=== PATIENT | female | born 1990 | race Caucasian/White ===

== ENCOUNTER 2025-01-15 13:58 | Emergency (ER) | payer BC, SELFPAY ==
[2025-01-15 14:00] VITALS: BP 145/83
--- NOTE | 2025-01-15 15:01 | ED.GENMED ---
History of Present Illness
General
Chief Complaint: Dental Problem
Source: patient
Exam Limitations: none
Time Seen by Provider: 01/15/25 14:44
Nursing documentation reviewed up to this point in time: agreed with
History of Present Illness
History of Present Illness:
Patient to ED with complaint of pain to left lower 2nd molar. States tooth broke awhile back, became painful last PM. Tried to see dentist today at [facility] but dentist does not accept her insurance. Brought self to ED for eval. Denies fever/chills.
No facial swelling
Past History
Past History
ED Past Medical History: Psychiatric (Bipolar disorder, borderline personaliity, anxiety disorder) and Other (Spontaneous vaginal delivery 08/08/2012. Cholelithiasis. Colitis. Ovarian cysts)
ED Past Surgical History: Cholecystectomy, Gynecological, Tonsilectomy and Other (D and C. after a spontaneous miscarriage)
Social History
Tobacco: Smoker
Alcohol: None
Drug: None
Personal:
Living: with family
Employment: Not employed
Family History
Family History: Negative Sudden
Review of Systems
Review of Systems
Allergies reviewed?: Yes
All Other Systems: ROS reviewed and negative except as documented in HPI and ROS
Constitutional: Reports no symptoms
EENT: Reports other (pain to broken left lower 2nd molar)
Respiratory: Reports no symptoms
Cardiac: Reports no symptoms
ABD/GI: Reports no symptoms
: Reports no symptoms
Musculoskeletal: Reports no symptoms
Skin: Reports no symptoms
Neurological: Reports no symptoms
Psychiatric: Reports no symptoms
Phy Exam
General Physical Exam
General Presentation: well appearing and no apparent distress
General age: appears stated age
General Skin: warm and dry
General Habitus: normal
ENT Exam
ENT Exam: pharynx normal, neck supple, swallowing well and other (Broken left lower 2nd molar. Painful to touch. No evidence of abscess formation. No trismus)
Musculoskeletal Exam
Musculoskeletal Exam: full ROM
Skin Exam
Skin Exam: normal color, warm/dry and no rash
Psychiatric Exam
Psychiatric Exam: normal mood/affect
Course
Orders/Labs/Results
Orders:
Orders
01/15/25 15:07
Penicillin V Potassium [Pen Vk] 500 mg PO NOW STA
Vital Signs
Initial and Last Documented VS:
Initial Vital Signs
Temp Pulse Resp BP Pulse Ox
98.8 F 90 18 145/83 97
01/15/25 14:00 01/15/25 14:00 01/15/25 14:00 01/15/25 14:00 01/15/25 14:00
Last Documented Vital Signs
Temp Pulse Resp BP Pulse Ox
98.8 F 90 18 145/83 97
01/15/25 14:00 01/15/25 14:00 01/15/25 14:00 01/15/25 14:00 01/15/25 14:00
Procedures
Dentalgia
Dental Block: Nerve Block
Bupivacaine 0.5%/Epi Dental cartridge administered?: Yes
Abcess drained?: No (No evidence of abscess)
Pt tolerated procedure well w/ no immediate adverse effects?: Yes
Other: Left lower 2nd molar
*Critical Care Note
Total Time (30-74mins, 75-104mins- exclusive of procedures): Not Applicable
Update Note
Update Note:
Patient to ED wtih pain from broken left lower 2nd molar. Pain started last PM although tooth has been broken for some time. No swelling, no abscess formation, no trismus. SHe remains afebrile. Dental block administered without incident. Given
dose of Pen VK in ED. Short course of tramadol sent to her pharmacy. SHe is discharged home and will attempt to obtain new dentist in AM. Given instructions on s/s to return to ED and she is agreeable to plan.
ED Attending Note
-
Portions of this chart may have been created with voice recognition software.� Occasional wrong word or��sound alike� substitutions may have occurred due to the inherent limitations of voice recognition software.
Discharge Plan
Departure
Patient Disposition: Home (Routine Discharge)
Date of Disposition: 01/15/25
Time of Disposition: 14:56
Patient with high blood pressure during this ER visit?: No
Condition: Good
Covid-19: Not Applicable
Discharge Problem:
Pain, dental
Instructions: Fractured Tooth (DC), Dental Pain (DC)
Prescriptions:
New
penicillin V potassium 500 mg tablet
500 mg PO QID Qty: 27 0RF
tramadol 50 mg tablet
50 mg PO TID PRN (Reason: Pain) Qty: 6 0RF
No Action
fluvoxamine 50 MG tablet
150 mg PO HS
cetirizine 10 MG tablet
10 mg PO PRN PRN (Reason: allergies)
fluconazole 150 MG tablet
150 mg PO PRN PRN (Reason: cold sores)
famotidine 40 MG tablet
40 mg PO BID
valacyclovir 500 MG tablet
1 gm PO PRN PRN (Reason: cold sores)
gabapentin 300 MG capsule
300 mg PO HS
norethindrone acetate 5 MG tablet
5 mg PO DAILY
lisdexamfetamine [Vyvanse] 50 MG capsule
50 mg PO DAILY
cannabidiol [Epidiolex] 1 UNIT solution
1 unit PO HS
temazepam 7.5 MG capsule
7.5 mg PO QPM
Referrals:
Tomer Bosch MD [Family Provider] -
Activity Restrictions/Additional Instructions:
You will need to see a dentist to have this tooth repaired or extracted [place]. Contact your provider in the AM. Return to the emergency department immediately for fever/chills, facial swelling, worsening pain, or for any further concerns.
Interventions
Interventions:
*Risk Screen - Suicide Last Done: 01/15/25 14:32
*General Assessment Last Done: 01/15/25 14:32
*Neglect/Abuse Screening Last Done: 01/15/25 14:32
ED- Fall Risk Assessment Last Done: 01/15/25 14:32
Discharge Date and Time
Print Language: INDONESIAN
[2025-01-15] MEDS: PEN VK 500 MG PO (15:30)
== END 2025-01-15 15:35 | disposition home or self-care (01) ==
LOC: EMR 13:58
PROVIDERS: EMERGENCY PHYSICIAN Emergency Medicine; FAMILY PHYSICIAN Internal Medicine
DX: K08.89 Other specified disorders of teeth and supporting structures (principal); K03.81 Cracked tooth; F17.200 Nicotine dependence, unspecified, uncomplicated; Z90.49 Acquired absence of other specified parts of digestive tract
CPT/HCPCS: 64400; 99284